=== PATIENT | female | born 1960 | race Caucasian/White ===

== ENCOUNTER 2017-06-30 06:51 | Inpatient (IN) | payer OTHER ==
--- NOTE | 2017-06-19 22:16 | HP ---
HISTORY AND PHYSICAL: DATE OF SURGERY: 06/30/17 DATE OF OFFICE VISIT: 06/19/17 SURGEON: Ruth Grewal MD * (DICTATED BY MERCEDES MONCADA) PROCEDURE: Right total hip arthroplasty. CHIEF COMPLAINT: Right hip pain. HISTORY OF PRESENT ILLNESS: Ms. Cortes is a 56-year-old female with complaints of right hip pain secondary to osteoarthritis. She has failed conservative management, has elected to proceed with a right total hip arthroplasty, which is scheduled for 06/30/[address] Grewal. PAST MEDICAL HISTORY: 1. Osteoporosis. 2. GERD. 3. Hyperlipidemia. PAST SURGICAL HISTORY: Denies. CURRENT MEDICATIONS: 1. Calcium with vitamin D. 2. Magnesium. 3. Vitamin K. 4. Strontium chloride. 5. Collagen Ultra 100. 6. Daily multivitamins. 7. Vitamin B12. 8. CoQ10. 9. Vitamin C. 10. Vitamin D3 complete. 11. Vitamin B complex. 12. Tylenol. ALLERGIES: To BEE STINGS and CELEBREX. FAMILY HISTORY: Cancer, stroke, diabetes, and heart disease. SOCIAL HISTORY: She is a 56-year-old female, she lives with her . She does not smoke or use drugs. She rarely uses alcohol. REVIEW OF SYSTEMS: A complete 14-point review of systems was reviewed with the patient, was all negative or noncontributory. PHYSICAL EXAMINATION GENERAL: She is well developed, well nourished, in no acute distress. She is alert and oriented x3, pleasant mood and appropriate affect. VITAL SIGNS: She stands 5 feet 3 inches tall, weighs 128 pounds, her blood pressure is 110/72, heart rate is 63. HEENT: Normocephalic, atraumatic. NECK: Supple. No palpable lymph nodes. PULMONARY: Lungs are clear to auscultation bilaterally. CARDIO: Regular rate and rhythm. Strong S1 and S2. ABDOMEN: Soft, nontender, and nondistended. NEUROLOGIC: Alert and oriented x3. Cranial nerves II through XII are intact. MUSCULOSKELETAL: Right lower extremity, the skin is intact. There are no open wounds or abrasions. She has decreased internal and external rotation of her right hip and she walks with an antalgic type gait. Her lower extremity muscle group strengths are intact at 5/5. She has 2+ dorsalis pedis pulses and intact sensation. ASSESSMENT AND PLAN: Ms. Cortes is a 56-year-old female with complaints of right hip pain secondary to severe osteoarthritis. She has failed conservative management and has elected to proceed with a right total hip arthroplasty, which is scheduled for 06/30/[address] Grewal discussed the risks and benefits of the surgery at today's visit and all of her questions were answered. Percocet and Colace were sent to her pharmacy for postoperative pain control. She will see Dr. Grewal back in 2 weeks after the surgery. MERCEDES MONCADA [id number]/[facility] #: [id number] MTDHenry
[~2017-06-30 06:51] MED LIST: Buffered Lidocaine 0.9% SYRIN* 5 ML/SYR SYRINGE INTRADERM ONE; Dexamethasone IV* 4 MG/ML 1 ML (4 MG) IV SLOW PU ONE; DiMENhydriNATE IV* 50 MG/ML VIAL IV PUSH ONE; Famotidine IV* 10 MG/ML 2 ML (20 mg) IV ONE
[2017-06-30] MEDS ORDERED: Dexamethasone IV* 4 MG/ML 1 ML (4 MG) ONE (07:02)
[2017-06-30] MEDS ORDERED: Famotidine IV* 10 MG/ML 2 ML (20 mg) ONE (07:02)
[2017-06-30] MEDS ORDERED: DiMENhydriNATE IV* 50 MG/ML VIAL ONE (07:03)
[2017-06-30] MEDS ORDERED: ceFAZolin 2 GM PREMIX (*) 50 ML IVPB ONE (07:03)
[2017-06-30] MEDS ORDERED: Buffered Lidocaine 0.9% SYRIN* 5 ML/SYR SYRINGE ONE (07:03)
[2017-06-30] MEDS ORDERED: Scopolamine 1.5 mg* PATCH ONE (07:27)
[2017-06-30] MEDS ORDERED: fentaNYL* 50 MCG/ML 2 ML VIAL (100 MCG VIAL) ONE (07:38)
[2017-06-30] MEDS ORDERED: Bupivacaine 0.5% SDV PF* 30 ML VIAL ONE (07:39)
[2017-06-30] MEDS ORDERED: Morphine PF AMP (0.5MG/ML)* 5 MG/10 ML AMP ONE (07:39)
[2017-06-30] MEDS ORDERED: Midazolam* 1 MG/ML 5 ML VIAL (5 MG) ONE (07:39)
[2017-06-30] MEDS ORDERED: Propofol* 10 MG/ML 20 ML BTL IV PUSH ONE ×2 (08:21→09:35)
[2017-06-30] MEDS ORDERED: Lidocaine 2% PF * 5 ML VIAL ONE (08:21)
[2017-06-30] MEDS ORDERED: Phenylephrine INJ* 10 MG/ML 1 ML VIAL (10 MG) ONE (08:32)
[2017-06-30] MEDS ORDERED: Glycopyrrolate IV* 0.2 MG/ML 1 ML VIAL ONE (08:37)
[2017-06-30] MEDS ORDERED: Acetaminophen IV 1GM/100ML * 100 ML IVPB ONE (08:53)
[2017-06-30] MEDS ORDERED: oxyCODONE TAB* 5 MG TAB PO PRN ×2 (08:53→08:54)
[2017-06-30] MEDS ORDERED: PROCHLORPERAZINE INJ 5 MG/ML 2 ML VIAL IV PRN (08:53)
[2017-06-30] MEDS ORDERED: fentaNYL* 50 MCG/ML 2 ML VIAL (100 MCG VIAL) IV PRN (08:53)
[2017-06-30] MEDS ORDERED: Naloxone* 0.4 MG/ML 1 ML VIAL IV PRN (08:54)
[2017-06-30] MEDS ORDERED: Nalbuphine* 20 MG/ML 1 ML VIAL IV PRN (08:54)
[2017-06-30] MEDS ORDERED: diPHENhydraMINE IV* 50 MG/ML 1 ml VIAL (BENADRYL) IV PRN ×2 (08:54→10:35)
[2017-06-30] MEDS ORDERED: EPHEDrine (Pressors)* 50 MG/ML VIAL ONE (09:19)
[2017-06-30] MEDS ORDERED: Ondansetron INJ* 2 MG/ML VIAL ONE ×2 (09:47→12:13)
--- NOTE | 2017-06-30 10:19 | RAD ---
Indication: Right hip replacement. Single view of the right hip taken in the operating room demonstrates femoral reamer and acetabular cup is in place. IMPRESSION: Intraoperative control films for right hip replacement.
[2017-06-30] MEDS ORDERED: Ondansetron TAB* 4 MG PO PRN (10:35)
[2017-06-30] MEDS ORDERED: Polyethylene Glycol 3350* 17 GM PACKET PO PRN (10:35)
[2017-06-30] MEDS ORDERED: Acetaminophen IV 1GM/100ML * 100 ML ONE (10:35)
[2017-06-30] MEDS ORDERED: Magnesium Hydroxide LIQ* 30 ML UDC PO PRN (10:35)
[2017-06-30] MEDS ORDERED: oxyCODONE/Acetamin 5/325 MG* TAB PO PRN ×2 (10:35)
[2017-06-30] MEDS ORDERED: Bisacodyl SUPP* 10 MG SUPP PR PRN (10:35)
[2017-06-30] MEDS ORDERED: Morphine INJ* 2 MG/ML 1 ML CARPUJECT IV PRN (10:35)
--- NOTE | 2017-06-30 11:32 | RAD ---
Indication: Postop right hip replacement. 2 views of the right hip and an AP view the pelvis demonstrates right hip replacement in satisfactory position. Pelvic ring is intact. IMPRESSION: Right hip replacement in satisfactory position.
[2017-06-30] MEDS: Ondansetron INJ* 2 MG/ML VIAL IV PRN ×2 (12:16→18:08)
[2017-06-30] MEDS ORDERED: PROCHLORPERAZINE INJ 5 MG/ML 2 ML VIAL IV ONE (13:17)
[2017-06-30] MEDS ORDERED: Lactated Ringers 500 ml BAG* 500 ML IV PRN (14:15)
[2017-06-30 14:58] LABS: Hematocrit 30 % (35-47); Hemoglobin 10.2 g/dl (12.0-16.0)
[2017-06-30] MEDS ORDERED: Lactated Ringers 500 ml BAG* 500 ML IV ONE (15:00)
[2017-06-30] MEDS: ceFAZolin 1 GM VIAL(*) 1 GM in NS 0.9% 50 ML* 50 ML IVPB SCH (16:19)
[2017-06-30] MEDS ORDERED: Warfarin TAB(*) 6 MG PO ONE (17:00)
[2017-06-30] MEDS: Acetaminophen TAB* 325 MG PO SCH (19:26)
[2017-06-30] MEDS: Docusate CAP* 100 MG PO SCH (19:28)
[2017-06-30 20:11] LABS: Hematocrit 31 % (35-47); Hemoglobin 10.5 g/dl (12.0-16.0)
--- NOTE | 2017-06-30 22:11 | CONS ---
CC: Dr. Grewal; Dr. Borden * CONSULTATION REPORT: DATE OF ADMISSION: 06/30/17 DATE OF CONSULT: 06/30/17 PRIMARY CARE PROVIDER: Dr. Borden. ATTENDING PHYSICIAN WHILE IN THE HOSPITAL: Lori Whittaker MD (report dictated by Tutu Fournier NP) REASON FOR MEDICAL CONSULTATION: Evaluation of hypotension. HISTORY OF PRESENT ILLNESS: Ms. Cortes is a 56-year-old female patient that presented to orthopedic services today for an elective right total hip replacement. She underwent the procedure. There were no complications. She recovered well on the PACU. Unfortunately though, in the postop setting, it was noted that her blood pressures at one point were 80s/40 and because of this , we were asked to evaluate in consult. I did evaluate the patient now. She does feel dizzy. She does feel lightheaded. She denies any chest pressure. Denies having any shortness of breath. She denies any abdominal pain. Says the pain is well controlled in her legs. She denies having any chest pain and denies having any chest pressure. She states that she does not feel like she is going to faint or pass out. She says that she did feel nauseated prior to this event and the nausea is now subsiding. There is no abdominal discomfort. She does have a history of osteoporosis, GERD, and hyperlipidemia. She had significant right hip pain preop secondary to osteoarthritis, that is why she underwent the hip replacement today. Because of this episode of hypotension, we were asked to evaluate in consult. PAST MEDICAL HISTORY: Includes: 1. GERD. 2. Osteoporosis. 3. Osteoarthritis. 4. Hyperlipidemia. 5. Degenerative joint disease. PAST SURGICAL HISTORY: Today, she had a right total hip surgery. HOME MEDICATIONS: According to her recall include: 1. Women's Multivitamin 1 tablet p.o. b.i.d. 2. Vitamin K 100 mcg p.o. daily. 3. Vitamin D3 5000 units daily. 4. Vitamin C 1000 mg p.o. b.i.d. 5. B12 500 mcg p.o. daily. 6. B complex 1 tablet daily. 7. Coenzyme Q10 100 mg daily. 8. Calcium, magnesium 1 tablespoon p.o. daily. 9. Tylenol 650 mg p.o. every 4 to 6 hours as needed. ALLERGIES TO MEDICATIONS: Include CELEBREX. FAMILY HISTORY: Mother has high cholesterol and dementia. Father had a history of lymphoma. SOCIAL HISTORY: She does not smoke. Does not drink. Surrogate decision maker is her . REVIEW OF SYSTEMS: There is no documented fever. She denied having any significant weight change. No double vision. No ear discharge. No rhinorrhea. No sore throat. No thyroid enlargement. She denies having any chest pain. There is no orthopnea. There is no nocturnal dyspnea. There is no abdominal pain. There was 1 episode of nausea and 1 episode of vomiting. No dysuria. No frequency. No loss of consciousness or pruritus. No skin ulcerations. Review of 14 systems completed, all others negative. PHYSICAL EXAMINATION: General: At this time, Ms. Cortes is a 56-year-old female patient. She appears to be well nourished, well developed. She is sitting in the hospital bed. She does not appear to be in any acute distress. Vital Signs: Blood pressure 80/44. I just repeated it after 500 cc bolus and she was 90/50. Her heart rate was noted to be 66, respirations 18, O2 sat of 100 %, temperature 97.2. HEENT: Head atraumatic. Eyes: Sclerae are anicteric. Throat: Her oral mucosa appears to be dry. No oropharyngeal erythema. Neck: Supple. Lungs: Clear to auscultation. No wheezes, rales, or rhonchi. Heart: Sounds S1, S2. Regular rate and rhythm. No murmurs, rubs, or gallops. Abdomen: Soft, flat, nontender. Bowel sounds were present. Extremities: Distal CSM checks were intact to the right lower extremity. She is unable to move the lower extremities given the fact that they are in a hip abductor pillow. She is able to move her upper extremities with 5/5 strength. Neurologic: She is awake, alert, oriented x3. Tongue midline. Document Photographer were equal. She had no gross focal deficits. Skin: Intact. She does have an incision to the right hip, which is covered with an ABD dressing. It is clean, dry, and intact. LABORATORY DATA: Her hemoglobin today was 10.2, hematocrit was 30. Preoperatively, her hemoglobin was 13.3. She did have chemistries preop, which revealed a sodium of 134, potassium 4.9, chloride of 98, bicarb of 30, BUN 16, creatinine 0.59. Glucose of 79, INR was 0.9. She did have EKG preop, which showed sinus bradycardia, rate of 58. No ST elevations or T wave inversions. Old medical records reviewed. ASSESSMENT AND PLAN: Ms. Cortes is a 56-year-old female patient presenting to orthopedic services for an elective right total hip. We were asked to evaluate in consult. Recommendations at this point are: 1. Right total hip replacement. I will defer the management to Dr. Grewal and her team. 2. Hypotension. Again, etiology at this point unclear. Her H and H and H is stable at 10 and 30. She had an EBL of 300 according to notes. My plan is to repeat the H and H again in 6 hours to make sure it is staying stable. I do not see any active on the dressing. I am going to give another liter of fluids wide open as she did seem to respond to this. She is now 90/50. I questioned if this could be related to Duramorph , which will hopefully wear off in the next 24 hours, but I think we need to continue to hydrate her. She does appear to be asymptomatic. She does have a little bit of lightheadedness. We will give her fluids. We will monitor this closely and obviously avoid any medications causing her hypotension. 3. Osteoporosis and osteoarthritis. Can follow with her primary. 4. Gastroesophageal reflux disease. Continue with the current lifestyle modifications. 5. Hyperlipidemia. Continue with her current lifestyle modifications and follow with her primary. 6. DVT prophylaxis. We will defer to the primary team.. 7. Code status. Full code. 8. Fluid, electrolytes, and nutrition. I would recommend a regular diet. TIME SPENT: Time spent on consult was approximately 60 minutes; greater than half the time was spent [id number] with the patient obtaining my history and physical, other half the time was spent going over the plan of care with the patient and implementing the plan of care. I did discuss plan of care with my attending, Dr. Whittaker; she is in agreement. TUTU FOURNIER NP [id number]/[facility] #: [id number] [facility]
[2017-07-01] MEDS: ceFAZolin 1 GM VIAL(*) 1 GM in NS 0.9% 50 ML* 50 ML IVPB SCH ×2 (00:08→08:22)
[2017-07-01] MEDS: oxyCODONE TAB* 5 MG TAB PO PRN ×2 (00:08→04:04)
[2017-07-01] MEDS: Acetaminophen TAB* 325 MG PO SCH (02:46)
[2017-07-01] MEDS: Ondansetron INJ* 2 MG/ML VIAL IV PRN ×3 (02:47→14:35)
[2017-07-01] MEDS: Acetaminophen TAB* 325 MG PO PRN ×3 (03:04→19:07)
[2017-07-01 06:43] LABS: Hematocrit 27 % (35-47); Hemoglobin 9.4 g/dl (12.0-16.0); Mean Corpuscular HGB Conc 35 g/dl (31-36); Mean Corpuscular Hemoglobin 31 pg (27-31); Mean Corpuscular Volume 90 fL (80-97); Mean Platelet Volume 8 um3 (7.4-10.4); Red Blood Count 2.99 10^6/ul (4.0-5.4); Red Cell Distribution Width 14 % (10.5-15); White Blood Count 9.2 10^3/ul (3.5-10.8)
[2017-07-01 07:00] LABS: Calcium 8.5 mg/dL (8.6-10.3); EGFR Non-African American 126.7 (>60); Potassium 4.1 mmol/L (3.5-5.0)
--- NOTE | 2017-07-01 07:28 | OP ---
DATE OF OPERATION: 06/30/17 - ROOM #342 DATE OF : 56 ATTENDING SURGEON: Ruth Grewal MD LABORER DRYING DEPARTMENT: MERCEDES Irwin. Ms. Madison did help throughout the procedure with preparation of the leg, wound retraction, manipulation of the hip, and wound closure. ANESTHESIOLOGIST: Dr. Shahzad Molina. ANESTHESIA: Spinal PRE-OP DIAGNOSIS: Severe end-stage degenerative osteoarthritis of the hip joint. POST-OP DIAGNOSIS: Severe end-stage degenerative osteoarthritis of the hip joint. OPERATIVE PROCEDURE: Right total hip arthroplasty. HARDWARE USED: Uncemented Adin total hip hardware. For the cup, a 52E Trident hemispherical shell, single with 20-mm 6.5 cancellous bone screw was used. For the liner, Trident X3 0-degree polyethylene insert 36E. For the femoral stem, an Accolade TMZF size 2 with a 132-degree neck. For the head, a Biolox ceramic head 36 -2.5. COMPLICATIONS: None. ESTIMATED BLOOD LOSS: 200 cc. SPECIMEN: Femoral head and acetabular reaming sent to Pathology. BRIEF HISTORY/INDICATIONS: Ms. Cortes is a 56-year-old female with 1 year of increasingly severe right hip pain. Radiograph showed [id number] arthritis. She failed conservative treatment with physical therapy, ambulatory assistive devices and antiinflammatories. Due to decreased quality of life and continued pain, the patient elected to undergo right total hip arthroplasty. Informed consent was obtained from the patient. She understood the risks of the surgery include, but were not limited to bleeding, infection, damage to nearby structures, continued pain and need for further surgery, intraoperative fracture , nerve palsy, hardware failure or loosening, dislocation, leg length discrepancy, stroke, heart attack, blood clot and . She wished to proceed. INTRAOPERATIVE FINDINGS: Intraoperatively, the patient was noted to have complete loss of cartilage in the acetabulum and femoral head region. Significant osteophyte formation around the acetabular cartilage notch. 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 DESCRIPTION OF PROCEDURE: Ms. Cortes was identified in the preanesthesia unit. Her right lower extremity was marked as the correct operative site. Informed consent was signed and placed in the chart. The patient was taken to the operating room and placed under spinal anesthesia. A Crow catheter was placed. The patient was placed in the left lateral decubitus position on the pegboard. All bony prominences were well padded. Right lower extremity was prepped and draped in the usual sterile fashion. Preop time-out was made to correctly identify the patient's side and site. Appropriate perioperative antibiotics were given within 1 hour of incision. A 12-cm posterior hip incision was made with a 10 blade and carried down to the lateral fascial layer. New 10 blade was used to make an incision in line with skin incision. A Charnley retractor was placed. The piriformis and conjoint tendons were identified on the posterolateral femur. These were elevated off the posterolateral femur using electrocautery and tagged with #5 Ethibond. Next , the electrocautery was used to make a standard posterolateral capsular flap and this was also tagged with #5 Ethibonds. The hip was carefully dislocated. Lesser troch of the femoral head measured 55 mm. Oscillating saw was used to make the appropriate femoral neck cut. The femoral head was sent to Pathology. The femur was carefully retracted anteriorly. After appropriate placement of retractors, the acetabulum was easily visualized. Long-handled knife was used to remove any remaining labrum from the acetabular rim. The acetabulum was noted to have complete loss of cartilage and very little remaining labrum. This was a shallow dysplastic acetabulum. The acetabulum was sequentially reamed up to a size 51. Bleeding subchondral bone bed was obtained with good rim fit. A 51 trial had good fit as well as appropriate anteversion and abduction angle. A Trident 52E acetabular cup was chosen as the final implant. This was impacted into the acetabulum without difficulty. Stability of the cup was excellent. There was appropriate anteversion and abduction angle. A single 20-mm screw was placed in the superior posterior quadrant for extra stability. Insert chosen was a 36E 0-degree Trident X3 polyethylene liner. This was impacted into the acetabular cup without difficulty. Stability of the insert was checked and rechecked and noted to be stable. Attention was next turned to preparation of the proximal femur. Canal finder was used to enter the proximal femur. The proximal femur was sequentially broached up to a size 2. Size 2 broach had good fit with appropriate anteversion. A trial 132- degree neck and a 36 +0 femoral head trial were chosen. Lesser troch to center of the femoral head measured 55 mm. The hip was reduced and taken through a range of motion. The hip was stable in all positions. There was good soft tissue tension and appropriate leg lengths. The hip was carefully dislocated. All trials were carefully removed. Final implant chosen was an Accolade TMZF size 2 with a 132-degree neck. This was carefully impacted into the femoral stem. There was good stability and appropriate anteversion. Femoral head trial of 36 -2.5 was chosen as a final implant as this measurement showed lesser troch to femoral head at 65 mm. A Biolox delta ceramic femoral head, 36 -2.5 was chosen as the final implant. This was impacted on to the femoral neck without difficulty. The hip was reduced and taken through a range of motion. The hip was stable in all positions. The hip was copiously irrigated with sterile saline. The previously tagged capsule and tendons were reapproximated to the posterolateral femur through 2 trochanteric drill holes. The lateral fascial layer was closed using interrupted #1 Vicryl's. The rest of the incision was closed in a layered fashion using 0 and 2-0 Vicryl's. Skin was closed using running 3-0 Monocryl and Dermabond. Sterile Adaptic, 4x4s, and paper tape were used to cover the incision. The patient's anesthesia was reversed without difficulty. She was taken to the PACU in stable condition. Intended weightbearing will be weightbearing as tolerated with posterior hip precautions. Intended DVT prophylaxis will be Coumadin with a Lovenox bridge. [id number]/[facility] [place] #: [id number] JAMES
--- NOTE | 2017-07-01 07:50 | PN ---
Progress Note - Progress Note Date of Service: 07/01/17 SOAP: Subjective: Pt. reports she feels dizzy, no pain r hip. Objective: RLE - dressing c/d/i. distally +df/pf , full sens lt, 2+ DP pulse. Vital Signs: Temp Pulse Resp BP Pulse Ox 98.0 F 66 16 94/50 100 07/01/17 04:27 07/01/17 04:27 07/01/17 07:24 07/01/17 07:14 07/01/17 04:27 Laboratory Results - last 24 hr 06/30/17 06/30/17 07/01/17 14:50 20:04 06:24 WBC 9.2 RBC 2.99 L Hgb 10.2 L 10.5 L 9.4 L Hct 30 L 31 L 27 L MCV 90 MCH 31 MCHC 35 RDW 14 Plt Count 210 MPV 8 Neut % (Auto) 77.8 Lymph % (Auto) 11.0 L Rush % (Auto) 11.0 H Eos % (Auto) 0.1 Baso % (Auto) 0.1 Absolute Neuts (auto) 7.2 Absolute Lymphs (auto) 1.0 Absolute Monos (auto) 1.0 H Absolute Eos (auto) 0 Absolute Basos (auto) 0 Absolute Nucleated RBC 0 Nucleated RBC % 0 INR (Anticoag Therapy) Sodium Potassium Chloride Carbon Dioxide Anion Gap BUN Creatinine Est GFR ( Amer) Est GFR (Non-Af Amer) BUN/Creatinine Ratio Glucose Calcium 07/01/17 07/01/17 06:24 06:24 WBC RBC Hgb Hct MCV MCH MCHC RDW Plt Count MPV Neut % (Auto) Lymph % (Auto) Rush % (Auto) Eos % (Auto) Baso % (Auto) Absolute Neuts (auto) Absolute Lymphs (auto) Absolute Monos (auto) Absolute Eos (auto) Absolute Basos (auto) Absolute Nucleated RBC Nucleated RBC % INR (Anticoag Therapy) 0.99 Sodium 128 L Potassium 4.1 Chloride 95 L Carbon Dioxide 31 Anion Gap 2 BUN 13 Creatinine 0.50 L Est GFR ( Amer) 163.0 Est GFR (Non-Af Amer) 126.7 BUN/Creatinine Ratio 26.0 H Glucose 107 H Calcium 8.5 L Assessment: 56 yo F pod 1 s/p RTHA Plan: xrays good pt/ot wbat rle - post hip precautions appreciate medicine consult for hypotension
[2017-07-01] MEDS: Enoxaparin(*) 30 MG/0.3 ML SYR SUBCUT SCH (08:56)
[2017-07-01] MEDS: Docusate CAP* 100 MG PO SCH ×2 (08:56→21:05)
--- NOTE | 2017-07-01 10:39 | PN ---
Progress Note - Progress Note Date of Service: 07/01/17 SOAP: Subjective: Pt resting comfortably in chair. C/O N/V. Pain well controlled Objective: Dressing clean and intact. Calves soft nontender. DP pulses 2+ Vital Signs: Temp Pulse Resp BP Pulse Ox 98.3 F 67 16 90/48 98 07/01/17 07:32 07/01/17 07:32 07/01/17 09:24 07/01/17 09:03 07/01/17 08:00 Laboratory Last Values WBC 9.2 10^3/ul (3.5-10.8) 07/01/17 06:24 RBC 2.99 10^6/ul (4.0-5.4) L 07/01/17 06:24 Hgb 9.4 g/dl (12.0-16.0) L 07/01/17 06:24 Hct 27 % (35-47) L 07/01/17 06:24 MCV 90 fL (80-97) 07/01/17 06:24 MCH 31 pg (27-31) 07/01/17 06:24 MCHC 35 g/dl (31-36) 07/01/17 06:24 RDW 14 % (10.5-15) 07/01/17 06:24 Plt Count 210 10^3/ul (150-450) 07/01/17 06:24 MPV 8 um3 (7.4-10.4) 07/01/17 06:24 Neut % (Auto) 77.8 % (38-83) 07/01/17 06:24 Lymph % (Auto) 11.0 % (25-47) L 07/01/17 06:24 Gooding % (Auto) 11.0 % (1-9) H 07/01/17 06:24 Eos % (Auto) 0.1 % (0-6) 07/01/17 06:24 Baso % (Auto) 0.1 % (0-2) 07/01/17 06:24 Absolute Neuts (auto) 7.2 10^3/ul (1.5-7.7) 07/01/17 06:24 Absolute Lymphs (auto) 1.0 10^3/ul (1.0-4.8) 07/01/17 06:24 Absolute Monos (auto) 1.0 10^3/ul (0-0.8) H 07/01/17 06:24 Absolute Eos (auto) 0 10^3/ul (0-0.6) 07/01/17 06:24 Absolute Basos (auto) 0 10^3/ul (0-0.2) 07/01/17 06:24 Absolute Nucleated RBC 0 10^3/ul 07/01/17 06:24 Nucleated RBC % 0 07/01/17 06:24 INR (Anticoag Therapy) 0.99 (0.89-1.11) 07/01/17 06:24 Sodium 128 mmol/L (133-145) L 07/01/17 06:24 Potassium 4.1 mmol/L (3.5-5.0) 07/01/17 06:24 Chloride 95 mmol/L (101-111) L 07/01/17 06:24 Carbon Dioxide 31 mmol/L (22-32) 07/01/17 06:24 Anion Gap 2 mmol/L (2-11) 07/01/17 06:24 BUN 13 mg/dL (6-24) 07/01/17 06:24 Creatinine 0.50 mg/dL (0.51-0.95) L 07/01/17 06:24 Est GFR ( Amer) 163.0 (>60) 07/01/17 06:24 Est GFR (Non-Af Amer) 126.7 (>60) 07/01/17 06:24 BUN/Creatinine Ratio 26.0 (8-20) H 07/01/17 06:24 Glucose 107 mg/dL (70-100) H 07/01/17 06:24 Calcium 8.5 mg/dL (8.6-10.3) L 07/01/17 06:24 Assessment: 56 yo female s/p right CESAR POD #1 Plan: PT/OT WBAT hip precautions Pain control Lovenox/coumadin 8mg today
[2017-07-01] MEDS ORDERED: PROCHLORPERAZINE INJ 5 MG/ML 2 ML VIAL IV PRN (12:33)
--- NOTE | 2017-07-01 14:43 | PN ---
Subjective Date of Service: 07/01/17 Interval History: Pt examined today at the bedside. States that she is nauseous. She denies abd pain. Denies chest pain sob. States she vomited today at lunch. Admits to dizziness worse with position change. Denies Loc. ROS- denies fever, denies chills, denies sob, denies chest pain, admits to nausea, denies abd pain, denies loc, admits to lightheadedness, review of 11 systems completed all others negative, Objective Active Medications: Acetaminophen (Tylenol Tab*) 650 mg PO Q4H PRN PRN Reason: PAIN OR TEMPERATURE Last Admin: 07/01/17 11:51 Dose: 650 mg Hydrocodone Bitart/Acetaminophen ([place] 5-325 Tab*) 1 tab PO Q4H PRN PRN Reason: PAIN Bisacodyl (Dulcolax Supp*) 10 mg MD DAILY PRN PRN Reason: constipation Diphenhydramine HCl (Benadryl Iv*) 12.5 mg IV Q6H PRN PRN Reason: PRURITIS Docusate Sodium (Colace Cap*) 100 mg PO BID [facility] Last Admin: 07/01/17 08:56 Dose: Not Given Enoxaparin Sodium (Lovenox(*)) 30 mg SUBCUT Q24H [facility] Last Admin: 07/01/17 08:56 Dose: 30 mg Lactated Ringer's (Lactated Ringers 1000 Ml Bag*) 1,000 mls @ 100 mls/hr IV PER RATE [facility] Last Admin: 07/01/17 12:45 Dose: 100 mls/hr Lactulose (Lactulose*) 30 ml PO Q6H PRN PRN Reason: constipation Magnesium Hydroxide (Milk Of Magnesia Liq*) 30 ml PO Q6H PRN PRN Reason: constipation Morphine Sulfate (Morphine Inj (Syringe)*) 2 mg IV Q2H PRN PRN Reason: PAIN Ondansetron HCl (Zofran Inj*) 4 mg IV Q6H PRN PRN Reason: nausea Last Admin: 07/01/17 14:35 Dose: 4 mg Ondansetron HCl (Zofran Tab*) 4 mg PO Q6H PRN PRN Reason: NAUSEA Pharmacy Profile Note (Scopolomine Patch Remove*) 1 note PATCH OFF ONCE ONE Stop: 07/03/17 06:01 Polyethylene Glycol/Electrolytes (Miralax*) 17 gm PO DAILY PRN PRN Reason: Constipation Prochlorperazine Edisylate (Compazine Inj*) 5 mg IV Q6H PRN PRN Reason: NAUSEA/VOMITING Last Admin: 07/01/17 12:41 Dose: 5 mg Vital Signs 06/30/17 06/30/17 06/30/17 15:37 16:24 16:48 Temperature 96.9 F Pulse Rate 82 Respiratory 16 14 Rate Blood Pressure 82/44 96/54 (mmHg) O2 Sat by Pulse 99 Oximetry 06/30/17 06/30/17 06/30/17 18:06 19:21 19:30 Temperature 97.7 F 98.0 F Pulse Rate 72 84 Respiratory 16 12 12 Rate Blood Pressure 118/64 88/49 (mmHg) O2 Sat by Pulse 100 100 Oximetry 06/30/17 06/30/17 06/30/17 20:48 21:54 23:28 Temperature 97.3 F Pulse Rate 65 Respiratory 14 14 16 Rate Blood Pressure 82/47 (mmHg) O2 Sat by Pulse 99 Oximetry 07/01/17 07/01/17 07/01/17 00:08 02:08 04:04 Temperature Pulse Rate Respiratory 12 14 14 Rate Blood Pressure (mmHg) O2 Sat by Pulse Oximetry 07/01/17 07/01/17 07/01/17 04:27 05:58 07:14 Temperature 98.0 F Pulse Rate 66 Respiratory 16 16 Rate Blood Pressure 83/47 94/50 (mmHg) O2 Sat by Pulse 100 Oximetry 07/01/17 07/01/17 07/01/17 07:24 07:32 08:00 Temperature 98.3 F Pulse Rate 67 Respiratory 16 16 18 Rate Blood Pressure 84/43 (mmHg) O2 Sat by Pulse 98 98 Oximetry 07/01/17 07/01/17 07/01/17 09:03 09:24 11:19 Temperature 98.0 F Pulse Rate 66 Respiratory 16 16 Rate Blood Pressure 90/48 (mmHg) O2 Sat by Pulse 96 Oximetry 07/01/17 11:28 Temperature Pulse Rate Respiratory Rate Blood Pressure 92/54 (mmHg) O2 Sat by Pulse Oximetry Oxygen Devices in Use Now: None Appearance: 56 female NAD, WD WN, sitting in bed Eyes: No Scleral Icterus Ears/Nose/Mouth/Throat: Mucous Membranes Moist Respiratory: Symmetrical Chest Expansion and Respiratory Effort, Clear to Auscultation Cardiovascular: NL Sounds; No Murmurs; No JVD Abdominal: NL Sounds; No Tenderness; No Distention Extremities: - - csm checks intact BLE Skin: - - incision to R hip CDI, Neurological: Alert and Oriented x 3 Lines/Tubes/Other Access: Clean, Dry and Intact Peripheral IV Result Diagrams: 07/01/17 06:24 07/01/17 06:24 Assess/Plan/Problems-Billing Assessment: 56 y/o female patient presenting to Dr patel service for an elective RTHA now post-op hypotension and N/V medicine asked to eval - Patient Problems (1) Status post right hip replacement Current Visit: Yes Status: Acute Priority: High Comment: POD 1 stable mangement per Ortho (2) Hypotension Current Visit: Yes Status: Acute Priority: High Comment: Pre-op bp 110's. Check orthostatics, due to positional dizziness, if postive will bolus liter NS and increase ivf rate. (3) Nausea and vomiting Current Visit: Yes Status: Acute Priority: High Comment: ? secondary to oxycodone patient is opoid naive, changing to norco, no abd pain no distention will monitor, (4) Osteoporosis Current Visit: Yes Status: Acute Priority: High Comment: stable follow with PCP (5) Arthritis Current Visit: Yes Status: Acute Priority: High Comment: stable follow with PCP (6) HLD (hyperlipidemia) Current Visit: Yes Status: Acute Priority: High Comment: stable follow with PCP (7) DVT prophylaxis Current Visit: Yes Status: Acute Priority: High Comment: per primary team (8) Full code status Current Visit: Yes Status: Acute Priority: High (9) FEN Current Visit: Yes Status: Acute Priority: High Comment: Regular diet, continue ivf until taking PO (10) Hyponatremia Current Visit: Yes Status: Acute Priority: High Comment: Asymptomatic, NA 128 pre-op 134, checking urine lytes, and serum osmol urine osmol, ? if r/t vomiting, continue ivf, repeat in am Status and Disposition: Dispo per ortho
[2017-07-01] MEDS: HYDROcodone/ACETAMIN 5-325 MG* 1 TAB PO PRN ×2 (16:47→22:49)
[2017-07-01] MEDS ORDERED: Warfarin TAB(*) 4 MG PO ONE (17:00)
[2017-07-01 17:59] LABS: Urine Bacteria Absent (Absent)
[2017-07-01 18:07] LABS: Urine Bilirubin Negative (Negative); Urine Glucose Negative (Negative); Urine Nitrite Negative (Negative)
[2017-07-02] MEDS: HYDROcodone/ACETAMIN 5-325 MG* 1 TAB PO PRN ×3 (02:48→12:38)
[2017-07-02] MEDS: Acetaminophen TAB* 325 MG PO PRN ×2 (04:54→10:37)
[2017-07-02 07:21] LABS: Hematocrit 27 % (35-47); Hemoglobin 9.4 g/dl (12.0-16.0); Mean Corpuscular HGB Conc 35 g/dl (31-36); Mean Corpuscular Hemoglobin 32 pg (27-31); Mean Corpuscular Volume 91 fL (80-97); Mean Platelet Volume 8 um3 (7.4-10.4); Red Blood Count 2.99 10^6/ul (4.0-5.4); Red Cell Distribution Width 14 % (10.5-15); White Blood Count 9.6 10^3/ul (3.5-10.8)
[2017-07-02 07:32] LABS: BUN/Creatinine Ratio 11.1 (8-20); Calcium 8.5 mg/dL (8.6-10.3); EGFR African American 149.1 (>60); Potassium 4.1 mmol/L (3.5-5.0)
--- NOTE | 2017-07-02 08:13 | PN ---
Progress Note - Progress Note Date of Service: 07/02/17 SOAP: Subjective: resting comfortably, complaints of significant N/V yesterday, improved this am Objective: Vital Signs Temp Pulse Resp BP Pulse Ox 97.9 F 81 16 108/56 96 07/02/17 07:41 07/02/17 07:41 07/02/17 07:50 07/02/17 07:40 07/02/17 07:41 Laboratory Last Values WBC 9.6 10^3/ul (3.5-10.8) 07/02/17 07:05 RBC 2.99 10^6/ul (4.0-5.4) L 07/02/17 07:05 Hgb 9.4 g/dl (12.0-16.0) L 07/02/17 07:05 Hct 27 % (35-47) L 07/02/17 07:05 MCV 91 fL (80-97) 07/02/17 07:05 MCH 32 pg (27-31) H 07/02/17 07:05 MCHC 35 g/dl (31-36) 07/02/17 07:05 RDW 14 % (10.5-15) 07/02/17 07:05 Plt Count 198 10^3/ul (150-450) 07/02/17 07:05 MPV 8 um3 (7.4-10.4) 07/02/17 07:05 Neut % (Auto) 78.6 % (38-83) 07/02/17 07:05 Lymph % (Auto) 9.0 % (25-47) L 07/02/17 07:05 [place] % (Auto) 12.0 % (1-9) H 07/02/17 07:05 Eos % (Auto) 0.2 % (0-6) 07/02/17 07:05 Baso % (Auto) 0.2 % (0-2) 07/02/17 07:05 Absolute Neuts (auto) 7.5 10^3/ul (1.5-7.7) 07/02/17 07:05 Absolute Lymphs (auto) 0.9 10^3/ul (1.0-4.8) L 07/02/17 07:05 Absolute Monos (auto) 1.1 10^3/ul (0-0.8) H 07/02/17 07:05 Absolute Eos (auto) 0 10^3/ul (0-0.6) 07/02/17 07:05 Absolute Basos (auto) 0 10^3/ul (0-0.2) 07/02/17 07:05 Absolute Nucleated RBC 0 10^3/ul 07/02/17 07:05 Nucleated RBC % 0 07/02/17 07:05 INR (Anticoag Therapy) 0.99 (0.89-1.11) 07/01/17 06:24 Sodium 135 mmol/L (133-145) 07/02/17 07:05 Potassium 4.1 mmol/L (3.5-5.0) 07/02/17 07:05 Chloride 99 mmol/L (101-111) L 07/02/17 07:05 Carbon Dioxide 33 mmol/L (22-32) H 07/02/17 07:05 Anion Gap 3 mmol/L (2-11) 07/02/17 07:05 BUN 6 mg/dL (6-24) 07/02/17 07:05 Creatinine 0.54 mg/dL (0.51-0.95) 07/02/17 07:05 Est GFR ( Amer) 149.1 (>60) 07/02/17 07:05 Est GFR (Non-Af Amer) 116.0 (>60) 07/02/17 07:05 BUN/Creatinine Ratio 11.1 (8-20) 07/02/17 07:05 Glucose 97 mg/dL (70-100) 07/02/17 07:05 Calcium 8.5 mg/dL (8.6-10.3) L 07/02/17 07:05 Urine Color Yellow 07/01/17 17:20 Urine Appearance Clear 07/01/17 17:20 Urine pH 6 (5-9) 07/01/17 17:20 Ur Specific Colp 1.010 (1.010-1.030) 07/01/17 17:20 Urine Protein Negative (Negative) 07/01/17 17:20 Urine Ketones Negative (Negative) 07/01/17 17:20 Urine Blood 1+ (Negative) H 07/01/17 17:20 Urine Nitrate Negative (Negative) 07/01/17 17:20 Urine Bilirubin Negative (Negative) 07/01/17 17:20 Urine Urobilinogen Negative (Negative) 07/01/17 17:20 Ur Leukocyte Esterase Negative (Negative) 07/01/17 17:20 Urine WBC (Auto) Trace(0-5/hpf) (Absent) 07/01/17 17:20 Urine RBC (Auto) 1+(3-5/hpf) (Absent) H 07/01/17 17:20 Urine Bacteria Absent (Absent) 07/01/17 17:20 Ur Random Sodium 58 mmol/L 07/01/17 17:20 Urine Glucose Negative (Negative) 07/01/17 17:20 Urine Ascorbic Acid Not Reportable 07/01/17 17:20 incision: c/d; dressing changed PE: NVI Assessment: POD #2 right CESAR Plan: 1) PT/OT- WBAT 2) Lovenox/SCD's for DVT prophlaxis; ASA BID x4 weeks when home 3) possible D/C home today; will see how patient does with am/pm PT
[2017-07-02] MEDS: Docusate CAP* 100 MG PO SCH (08:32)
[2017-07-02] MEDS: Enoxaparin(*) 30 MG/0.3 ML SYR SUBCUT SCH (08:33)
[2017-07-02 11:52] VITALS: BP 105/62
--- NOTE | 2017-07-03 03:40 | DS ---
DISCHARGE SUMMARY: DATE OF ADMISSION: 06/30/17 DATE OF DISCHARGE: 07/02/17 SURGEON: Dr. Ruth Grewal * (DICTATED BY MERCEDES MONCADA) PRINCIPAL DIAGNOSIS: Severe end-stage osteoarthritis of the right hip. DISCHARGE DIAGNOSIS: Severe end-stage osteoarthritis of the right hip. HISTORY OF PRESENT ILLNESS: Ms. Cortes is a 56-year-old female with end-stage osteoarthritis of the right hip joint. She has failed conservative management and has elected to proceed with a right total hip arthroplasty. HOSPITAL COURSE: Ms. Cortes was admitted electively to the hospital on and underwent a right total hip arthroplasty. She tolerated the procedure well with no complications. Postoperatively, she was placed on Lovenox for DVT prophylaxis. On postoperative day 1, her H and H was 9.4 and 27; on postoperative day 2, 9.4 and 27. Her hospital course was unremarkable. She made daily improvements with physical therapy and at the time of discharge on , she was afebrile, her wound was clean and dry, and she was ambulating well with the aid of a walker. DISCHARGE MEDICATIONS: 1. Aspirin 325 twice a day for 4 weeks. 2. Percocet 5/325 one to two tabs every 4 to 6 hours as needed for pain. 3. Colace 1 to 3 tabs daily as needed for constipation. PHYSICAL EXAM UPON DISCHARGE: She is afebrile. Her vital signs are stable. Her wound was clean and dry. There is no signs of infection. She is overall neurovascularly intact and ambulating well with the aid of a walker. DISCHARGE INSTRUCTIONS: She is discharged home in stable condition. She is asked to take aspirin 325 twice a day for 4 weeks for DVT prophylaxis. A prescription for Percocet was given to her to take as needed for pain. She can shower. She can let soap and water run over the incision, pat the area dry. She can leave it to open to air starting Thursday. She will follow with Dr. Grewal in 2 weeks. We have asked her to call us sooner if she has any questions or concerns. She is weightbearing as tolerated and posterior hip precautions are in place. MERCEDES MONCADA [id number]/[facility] #: [id number] JAMES
[2017-07-03] MEDS ORDERED: Scopolomine PATCH Remove* 1 NOTE MISC PATCH OFF ONE (06:00)
== END 2017-07-02 14:40 | disposition home health service (06) | DRG 470 ==
LOC: AA 06:51 → SSU 10:30
PROVIDERS: ADMIT Orthopaedic Surgery Adult Reconstructive Orthopaedic Surgery; ATTEND Orthopaedic Surgery Adult Reconstructive Orthopaedic Surgery
PROC: 0SR904A Replacement of Right Hip Joint with Ceramic on Polyethylene Synthetic Substitute, Uncemented, Open Approach (ICD-10-PCS; principal; 2017-06-30 08:00)
DX: M16.11 Unilateral primary osteoarthritis, right hip (principal); E87.1 Hypo-osmolality and hyponatremia; I95.81 Postprocedural hypotension; E78.5 Hyperlipidemia, unspecified; K21.9 Gastro-esophageal reflux disease without esophagitis; M81.0 Age-related osteoporosis without current pathological fracture; R11.2 Nausea with vomiting, unspecified; R42 Dizziness and giddiness; Z79.82 Long term (current) use of aspirin; Z88.6 Allergy status to analgesic agent; Z91.030 Bee allergy status; Z83.3 Family history of diabetes mellitus; Z82.49 Family history of ischemic heart disease and other diseases of the circulatory system; Z82.3 Family history of stroke; Z82.0 Family history of epilepsy and other diseases of the nervous system; Z80.7 Family history of other malignant neoplasms of lymphoid, hematopoietic and related tissues; M25.751 Osteophyte, right hip; Q65.89 Other specified congenital deformities of hip
CPT/HCPCS: 36415; 80048; 81003; 81015; 83930; 83935; 84300; 85014; 85018; 85025; 85610; 94760; A9270-GY; C1713; C1776; J0690; J0780; J1100; J1240; J1650; J2250; J2405; J2704; J3010